=== PATIENT | male | born 1985 | race Caucasian/White ===

== ENCOUNTER 2022-11-05 15:21 | Emergency (ER) | payer SELFPAY ==
[~2022-11-05] VITALS: Ht 167.6 cm; Wt 86.2 kg
[2022-11-05 16:09] VITALS: BP 125/89; PULSE 98; RESP 16; TEMP 98.4; O2SAT 97
[2022-11-05] MEDS ORDERED: CLIN-194 MT (17:10)
== END 2022-11-05 17:36 | disposition home or self-care (01) ==
LOC: ER 15:21
DX: J32.9 Chronic sinusitis, unspecified (principal); R68.84 Jaw pain
CPT/HCPCS: 99283